=== PATIENT | female | born 1965 | race Caucasian/White ===

== ENCOUNTER 2018-12-04 08:33 | Outpatient (CLI) | payer OTHER ==
--- NOTE | 2018-12-04 12:03 | Cat Scan Report ---
CT ABDOMEN AND PELVIS WITH CONTRAST HISTORY: R10.13- EPIGASTRIC PAIN/K30- FUNCTIONAL DYSPEPSIA/R10.84- GENERAL COMPARISON: None. TECHNIQUE: Axial CT images were obtained through the abdomen and pelvis after 100 cc of Omnipaque 300 intravenously. Sagittal and coronal reformatted images. All CT scans at this location are performed using CT dose reduction for ALARA by means of automated exposure control. FINDINGS: CT ABDOMEN: Lung Bases: Clear. Liver: No significant abnormality. Biliary: No significant abnormality. Spleen: No significant abnormality. Unenlarged. Pancreas: No significant abnormality. Adrenals: No significant abnormality. Kidneys: No significant abnormality. Lymphatics: No lymphadenopathy. Vasculature: No significant abnormality. Bowel/Peritoneum: No evidence for bowel obstruction or focal inflammation. There are a few scattered diverticula in the sigmoid region. Normal appendix. No free fluid or free air. CT PELVIS: : No significant abnormality. Osseous Structures: Intact. Mild degenerative changes in the lumbar spine. Additional Findings: None IMPRESSION: No acute process is identified. Mild diverticulosis of the distal colon. Mild degenerative changes in the lumbar spine. Signer Name: Timmy Hopkins Jr, MD Signed: 12/04/2018 11:59 AM Workstation Name: [id number]
== END 2018-12-04 08:34 | disposition home or self-care (01) ==
LOC: CT 08:33
PROVIDERS: ATTEND Internal Medicine Gastroenterology
DX: K57.30 Diverticulosis of large intestine without perforation or abscess without bleeding (principal); M47.816 Spondylosis without myelopathy or radiculopathy, lumbar region
CPT/HCPCS: 74177; Q9967